=== PATIENT | female | born 1930 | race Two or more races ===

== ENCOUNTER 2018-09-06 17:23 | Emergency (ER) | payer MEDICARE, MEDICAID ==
[~2018-09-06] VITALS: Ht 157.5 cm; Wt 63.5 kg
--- NOTE | 2018-09-06 17:42 | NUR ---
Ko Henriquez speaker in to translate for for patient and Dr. Beltran.
--- NOTE | 2018-09-06 17:49 | NUR ---
pt does not know the medcines she takes.
[2018-09-06] MEDS ORDERED: ACETAMINOPHEN ES 500 MG TABLET PO ONE (18:00)
[2018-09-06] MEDS ORDERED: ACETAMINOPHEN ES 500 MG TABLET ONE (18:02)
[2018-09-06 18:14] LABS: BASOPHILS # (AUTO) 0.1 K/uL (0.0-8.0); BASOPHILS % (AUTO) 1.2 % (0.0-2.0); EOSINOPHILS # (AUTO) 0.1 K/uL (0.0-0.7); EOSINOPHILS % (AUTO) 0.7 % (0.0-7.0); HEMATOCRIT 35.9 % (31.2-41.9); HEMOGLOBIN 11.7 g/dL (10.9-14.3); LYMPHOCYTES # (AUTO) 1.7 K/uL (20.0-40.0); LYMPHOCYTES % (AUTO) 18.4 % (20.5-51.5); MEAN CORPUSCULAR HEMOGLOBIN 28.7 uug (24.7-32.8); MEAN CORPUSCULAR HGB CONC 33 g/dL (32.3-35.6); MEAN CORPUSCULAR VOLUME 88.1 fL (75.5-95.3); MONOCYTES # (AUTO) 1.1 K/uL (2.0-10.0); MONOCYTES % (AUTO) 11.6 % (0.0-11.0); NEUTROPHILS # (AUTO) 6.2 K/uL (1.8-8.9); NEUTROPHILS % (AUTO) 68.1 % (38.5-71.5); PLATELET COUNT (AUTO) 220 K/uL (179-408); RED BLOOD CELL COUNT(AUTO) 4.07 MIL/uL (3.63-4.92); WHITE BLOOD COUNT (AUTO) 9.1 K/uL (3.8-11.8)
--- NOTE | 2018-09-06 18:15 | NUR ---
pt. taken down for CT.
[2018-09-06 18:22] LABS: CARBON DIOXIDE 26 mmol/L (21-32); CHLORIDE 105 mmol/L (98-107); CREATININE 1.7 mg/dL (0.6-1.3); GLUCOSE 121 mg/dL (74-106); POTASSIUM 3.6 mmol/L (3.5-5.1); UREA NITROGEN, BLOOD 20 mg/dL (7-18)
--- NOTE | 2018-09-06 18:26 | NUR ---
Patient back from CT.
[2018-09-06 18:28] LABS: ALANINE AMINOTRANSFERASE 34 U/L (14-59); ALKALINE PHOSPHATASE 101 U/L (50-136); ASPARTATE AMINOTRANSFERASE 14 U/L (15-37); BILIRUBIN,DIRECT 0.1 mg/dL (0.0-0.2); BILIRUBIN,TOTAL 0.6 mg/dL (0.2-1.0); TOTAL PROTEIN, SERUM 7.6 g/dL (6.4-8.2)
--- NOTE | 2018-09-06 18:33 | NUR ---
I&O Cath and urine collected and sent for lab by rn. Harman.
--- NOTE | 2018-09-06 18:37 | NUR ---
HR of 54, saturation of 95% on RA, RR 17, 185/71 Addendum: 09/06/18 at 1844 by DOMINGA md. bridges.
[2018-09-06 18:38] LABS: *BILIRUBIN,URIN NEGATIVE (NEGATIVE); *BLOOD, URINE NEGATIVE (NEGATIVE); *CLARITY,URINE CLEAR (CLEAR); *COLOR,URINE YELLOW (YELLOW); *KETONES,URINE NEGATIVE (NEGATIVE); *UROBILINOGEN,URINE 0.2 E.U./dl (NORMAL); LEUKOCYTE ESTERASE ,URINE 1+ (NEGATIVE); NITRITE, URINE NEGATIVE (NEGATIVE); PH,URINE 5.5 (5.0-8.0); UGLUCOSE NEGATIVE (NEGATIVE)
[2018-09-06 18:46] LABS: MUCUS,URINE FEW /LPF (0-FEW); SQUAMOUS EPITHELIAL CELL,UR FEW /HPF (NONE SEEN)
--- NOTE | 2018-09-06 18:59 | NUR ---
Bedside report given to rn. Man.
--- NOTE | 2018-09-06 19:57 | NUR ---
JAME utilizing [employer] Tele[employer] for translation.
[2018-09-06] MEDS ORDERED: CEFTRIAXONE 1 G in IV DEXTROSE 5% 50 ML IV ONE (20:00)
[2018-09-06] MEDS ORDERED: NITROFURANTOIN/NITROFURAN MAC 100 MG CAPSULE PO ONE (20:00)
[2018-09-06] MEDS ORDERED: NITROFURANTOIN/NITROFURAN MAC 100 MG CAPSULE ONE (20:05)
[2018-09-06] MEDS ORDERED: CEFTRIAXONE 1 G VIAL ONE (20:06)
--- NOTE | 2018-09-06 21:59 | NUR ---
Patient discharged to home in stable conditon. Written and verbal after care instructions given to daughter. Patient verbalizes understanding of instructions. Patient out of ER via wheelchair, VSS, no acute signs of distress, all belongings taken, IV site discontinued, accompanied patient to car, assisted in transfer, no fall noted, to be driven home via private vehicle by daughter.
[2018-09-06 22:01] VITALS: BP 178/89
== END 2018-09-06 22:02 | disposition home or self-care (01) ==
LOC: ER 17:24
DX: N12 Tubulo-interstitial nephritis, not specified as acute or chronic (principal); R53.1 Weakness; R25.1 Tremor, unspecified
CPT/HCPCS: 36415; 71045; 74176; 76705; 80048; 80076; 81001; 83605; 84484; 85025; 85730; 87040 ×2; 87086; 93005; 96365; 99284; J0696; J7060; 70030-TC; A4663; A9150